=== PATIENT | female | born 1940 | race Caucasian/White ===

== ENCOUNTER → 2018-01-14 | Outpatient (REF) | payer MEDICARE, BC ==
[2018-01-14 14:27] LABS: VITAMIN B12 LEVEL 633 PG/ML
[2018-01-14 14:28] LABS: FOLATE 22.3 NG/ML
[2018-01-14 14:33] LABS: FERRITIN 29 NG/ML (8-252); IRON (FE) 69 UG/DL (50-170); PERCENT SATURATION 19.3 % (13.2-45.0); TOTAL IRON BINDING CAPACITY 358 UG/DL (250-450)
== END ==
LOC: M LAB REF 13:03
DX: D64.9 Anemia, unspecified (principal)
CPT/HCPCS: 82746

== ENCOUNTER 2018-07-28 08:33 | Emergency (ER) | payer MEDICARE, BC ==
[~2018-07-28] VITALS: Ht 165.1 cm; Wt 68.2 kg
[~2018-07-28 08:33] MED LIST: ASPI81TA85 PO; CRES10TA32 PO; K-TA10TA PO; LISI40TAB PO; MULTCAP PO; caltrate; lopressor
[2018-07-28] MEDS ORDERED: AMLO5TAB6 OR (08:50)
[2018-07-28] MEDS ORDERED: METO1TAB33 OR (08:50)
[2018-07-28] MEDS ORDERED: METO1TAB7 OR (08:50)
[2018-07-28] MEDS ORDERED: HYDR-3910 OR (08:50)
[2018-07-28] MEDS ORDERED: LISI10TA4 OR (08:50)
[2018-07-28] MEDS ORDERED: CHLO125TA OR (08:50)
[2018-07-28 09:59] LABS: HEMATOCRIT 34.4 % (36.0-47.0); HEMOGLOBIN 11.6 g/dl (12.0-15.5); MEAN CORPUSCULAR HEMOGLOBIN 30.3 pg (27.0-33.0); MEAN CORPUSCULAR HGB CONC 33.7 g/dl (32.0-36.5); MEAN CORPUSCULAR VOLUME 89.8 fl (80.0-96.0); PLATELET COUNT, AUTOMATED 222 10^3/uL (150-450); RED BLOOD COUNT 3.83 10^6/uL (4.00-5.40); WHITE BLOOD COUNT 7.9 10^3/uL (4.0-10.0)
[2018-07-28] MEDS ORDERED: ACETAMINOPHEN TAB 650MG DOSE (2X325MG) PO ONE (10:00)
--- NOTE | 2018-07-28 10:11 | REP ---
UNILATERAL LEFT RIBS, PA CHEST: HISTORY: Trauma. The lungs are clear. The cardiac silhouette is enlarged. The pulmonary vasculature is normal in appearance. The bony structure is intact. IMPRESSION: Cardiomegaly. Electronically Signed by Sebas Baron MD 07/28/2018 10:38 A
[2018-07-28 10:20] LABS: CALCIUM LEVEL 8.8 MG/DL (8.8-10.2); CREATININE FOR GFR 1.26 MG/DL (0.55-1.30); GLOMERULAR FILTRATION RATE 43.6 (>39); POTASSIUM SERUM 3.9 MEQ/L (3.5-5.1)
[2018-07-28] MEDS ORDERED: LIDO5DIS41 TOP (10:33)
[2018-07-28] MEDS ORDERED: ACET1TAB55 PO (10:33)
[2018-07-28 10:38] VITALS: BP 134/63
== END 2018-07-28 10:45 | disposition home or self-care (01) ==
LOC: EDBD 08:33 → M ED 08:33
DX: S29.012A Strain of muscle and tendon of back wall of thorax, initial encounter (principal); S20.212A Contusion of left front wall of thorax, initial encounter; W01.0XXA Fall on same level from slipping, tripping and stumbling without subsequent striking against object, initial encounter; Y92.89 Other specified places as the place of occurrence of the external cause; M62.838 Other muscle spasm; I12.9 Hypertensive chronic kidney disease with stage 1 through stage 4 chronic kidney disease, or unspecified chronic kidney disease; N18.9 Chronic kidney disease, unspecified; E78.5 Hyperlipidemia, unspecified; Z79.899 Other long term (current) drug therapy; Z79.82 Long term (current) use of aspirin; Z88.8 Allergy status to other drugs, medicaments and biological substances

== ENCOUNTER → 2022-01-17 | Outpatient (REF) | payer MEDICARE, BC ==
[~2022-01-17] MED LIST changes: +ACET1TAB55 PO; +AMLO1TAB24 OR; -ASPI81TA85 PO; +ASPI81TA86 PO; +CHLO125TA OR; +CRES10TA PO; -CRES10TA32 PO; +HYDR-3910 OR; +LIDO5DIS41 TOP; +LISI10TA22 OR; +LISI40TA52 PO; -LISI40TAB PO; +METO1TAB33 OR; +METO1TAB7 OR
== END ==
LOC: M LAB REF 08:17
PROVIDERS: ATTEND Nurse Practitioner Family
DX: D50.9 Iron deficiency anemia, unspecified (principal)

== ENCOUNTER → 2022-08-10 | Outpatient (CLI) | payer MEDICARE, BC | LOC: M WHC 08:30 | PROVIDERS: ATTEND Family Medicine | DX: Z12.31 Encounter for screening mammogram for malignant neoplasm of breast (principal); Z13.820 Encounter for screening for osteoporosis; M85.851 Other specified disorders of bone density and structure, right thigh; M85.852 Other specified disorders of bone density and structure, left thigh ==

== ENCOUNTER → 2024-03-12 | Outpatient (REF) | payer MEDICARE ==
[~2024-03-12] MED LIST changes: +FURO20TA2 PO; -HYDR-3910 OR; +HYDR25TA87 OR; -K-TA10TA PO; +LISI5TAB11 PO; +OMEP-173 PO; +POTA-164 PO; +POTA1TAB23 PO; +SPIR-10 PO; +XALA0.007; +XARE20TA PO
[2024-03-12 18:23] LABS: PERCENT SATURATION 27.7 % (13.2-45.0)
[2024-03-12 18:25] LABS: FERRITIN 76.5 NG/ML (7.3-270.7)
== END ==
LOC: M LAB REF 17:13
PROVIDERS: ATTEND Nurse Practitioner Family
DX: D50.9 Iron deficiency anemia, unspecified (principal)

== ENCOUNTER 2024-05-07 11:05 | Day surgery (SDC) | payer MEDICARE ==
[~2024-05-07] VITALS: Ht 142.2 cm; Wt 65.4 kg
[~2024-05-07 11:05] MED LIST changes: +ROSU10TA61 PO; +THERTAB52 PO; +XALA0.007 OU; +fentaNYL 100 MCG/2 ML INJECTION As Ordered ONE
[2024-05-07] MEDS: LIDOCAINE 3.5 % 1ML OPHTH TOPICAL GEL OU ONE (11:57)
[2024-05-07] MEDS ORDERED: EMLA CREAM 5GM TUBE (LIDOCAINE/PRILOCAINE) TOP ONE (12:25)
[2024-05-07] MEDS: TOBRADEX OPHTH OINT 3.5 GM As Ordered ONE (12:39)
[2024-05-07] MEDS: POVIDONE-IODINE 5% OPHTH PREP SOL 30ML As Ordered ONE (12:39)
[2024-05-07] MEDS: LIDOCAINE 2% W/EPINEPHRINE 20ML VIAL **PRES FREE As Ordered ONE (13:00)
[2024-05-07 13:15] VITALS: BP 147/66
[2024-05-07 14:00] VITALS: TEMP 98.7; O2SAT 95
[2024-05-07] MEDS: PROPARACAINE 0.5% OPHTH SOL 15ML OU PRN (14:13)
== END 2024-05-07 14:12 | disposition home or self-care (01) ==
LOC: M SDC 11:05
PROVIDERS: ATTEND Ophthalmology
DX: H02.403 Unspecified ptosis of bilateral eyelids (principal); I10 Essential (primary) hypertension; E78.5 Hyperlipidemia, unspecified; K21.9 Gastro-esophageal reflux disease without esophagitis; Z86.718 Personal history of other venous thrombosis and embolism; Z79.899 Other long term (current) drug therapy; Z79.01 Long term (current) use of anticoagulants; Z88.1 Allergy status to other antibiotic agents
CPT/HCPCS: 15823; J3010

== ENCOUNTER → 2024-12-10 | Outpatient (REF) | payer MEDICARE, BC ==
[~2024-12-10] MED LIST changes: +LIDO1ADH93 TOP; -LIDO5DIS41 TOP; -fentaNYL 100 MCG/2 ML INJECTION As Ordered ONE
[2024-12-10 18:38] LABS: PERCENT SATURATION 17.6 % (13.2-45.0)
[2024-12-10 18:45] LABS: FERRITIN 60.8 NG/ML (7.3-270.7)
== END ==
LOC: M LAB REF 17:12
PROVIDERS: ATTEND Nurse Practitioner Family
DX: D50.9 Iron deficiency anemia, unspecified (principal)

== ENCOUNTER → 2025-04-01 | Outpatient (REF) | payer MEDICARE, BC ==
[2025-04-01 19:40] LABS: IRON (FE) 78.0 UG/DL (50-170); PERCENT SATURATION 25.7 % (13.2-45.0)
== END ==
LOC: M LAB REF 17:54
PROVIDERS: ATTEND Nurse Practitioner Family
DX: D50.9 Iron deficiency anemia, unspecified (principal)